=== PATIENT | female | born 1970 | race American Indian/Alaskan Native ===

== ENCOUNTER 2017-04-27 10:45 | Outpatient (CLI) | payer OTHER ==
--- NOTE | 2017-04-27 12:03 | Mammography Report ---
Bilateral mammogram: Compared to 03/04/14. CAD study utilized. Findings: Predominance adipose tissue bilaterally. Well-circumscribed density upper left breast approximate 12:00 position. No microcalcification. Benign axillary nodes. Impression: New circumscribed density 12:00 position left breast. Recommend spot mag and sonographic examination. BI-RADS CATEGORY: 0 = Needs additional imaging evaluation ACR BI-RADS MAMMOGRAPHIC CODES: 0 = Needs additional imaging evaluation; 1 = Negative; 2 = Benign; 3 = Probably benign; 4 = Suspicious; 5 = Malignant; 6 = Known biopsy-proven malignancy COMMENT: 1. Dense breast tissue, i.e., adenosis, fibrocystic changes, etc., may obscure an underlying neoplasm. 2. Approximately 10% of cancers are not detected with mammography. 3. A negative mammography report should not delay biopsy if a clinically suspicious mass is present. COMMENT: Patient follow-up letters are generated in [email or web address].
== END 2017-04-27 10:46 | disposition home or self-care (01) ==
LOC: SPVWC 10:45
DX: Z12.31 Encounter for screening mammogram for malignant neoplasm of breast (principal)
CPT/HCPCS: 77067; G0202

== ENCOUNTER 2018-11-08 06:19 | Inpatient (IN) | payer OTHER ==
[2018-11-08] MEDS ORDERED: ASPIRIN PO ONE (06:26)
[2018-11-08 06:54] LABS: Basophils % (Auto) 0.3 % (0.0-1.8); Eosinophils # (Auto) 0.1 K/mm3 (0.0-0.4); Eosinophils % (Auto) 2.2 % (0.0-4.3); Hematocrit 34.7 % (30.3-42.9); Hemoglobin 11.3 gm/dl (10.1-14.3); Lymphocytes # (Auto) 2.9 K/mm3 (1.2-5.4); Lymphocytes % (Auto) 42.6 % (13.4-35.0); Mean Corpuscular HGB Conc 33 % (30-34); Mean Corpuscular Volume 80 fl (79-97); Monocytes # (Auto) 0.7 K/mm3 (0.0-0.8); Monocytes % (Auto) 9.6 % (0.0-7.3); Platelet Count 249 K/mm3 (140-440); Red Blood Count 4.31 M/mm3 (3.65-5.03); Red Cell Distribution Width 16.1 % (13.2-15.2)
[2018-11-08 07:11] LABS: BUN/Creatinine Ratio 15; Blood Urea Nitrogen 9 mg/dL (7-17); Calcium 9.3 mg/dL (8.4-10.2); Hemolysis Index 6
--- NOTE | 2018-11-08 09:05 | Emergency Department Report ---
ED Chest Pain HPI - General Chief Complaint: Chest Pain Stated Complaint: CHEST PAIN Time Seen by Provider: 11/08/18 09:00 Source: patient Mode of arrival: Ambulatory Limitations: No Limitations - History of Present Illness Initial Comments: Patient is a 47-year-old female presents emergency room for complaints of chest pain. Patient states the chest pain is in her left chest and radiating to her left arm. Patient states the pain is a 5 out of 10. Patient states the pain has been consistent. Patient states the pain is better with rest and worse with exertion. Patient states she has type 2 diabetes and is on insulin pump. Patient states her last A1c was 7.9. Patient does not take aspirin everyday. Patient also has hypertension which she is taking lisinopril. Patient states she has been dizzy lately patient denies even chills. Patient denies shortness of breath per patient denies abdominal pain.. MD Complaint: chest pain -: Sudden Onset: during rest Pain Location: substernal, left chest Pain Radiation: LUE Severity: moderate Severity scale (0 -10): 5 Quality: tightness Consistency: constant Improves With: rest Worsens With: exertion re: denies: nausea, vomting, diaphoresis, dyspnea, sense of impending doom Other Symptoms: denies: cough, fever, syncope, rash, acid taste in mouth, leg swelling, palpitations, burping Treatments Prior to Arrival: none Aspirin use within the Past 7 Days: (0) No - Related Data On Oral Contraceptives: No Home Medications Medication Instructions Recorded Confirmed Last Taken Insulin Lispro [HumaLOG VIAL] 90 units SUB-Q CONT 11/08/18 11/08/18 11/07/18 Lisinopril [Zestril] 10 mg PO DAILY 11/08/18 11/08/18 Unknown Allergies Allergy/AdvReac Type Severity Reaction Status Date / Time oxycodone [From Percocet] Allergy Unknown Verified 11/08/18 06:25 Heart Score - HEART Score History: Moderately suspicious EKG: Non-specific Age: 45-65 Risk factors: 1-2 risk factors Troponin: < normal limit HEART Score: 4 ED Review of Systems ROS: Stated complaint: CHEST PAIN Other details as noted in HPI Constitutional: denies: chills, fever Eyes: denies: eye pain, eye discharge, vision change ENT: denies: ear pain, throat pain Respiratory: denies: cough, shortness of breath, wheezing Cardiovascular: chest pain. denies: palpitations Endocrine: no symptoms reported Gastrointestinal: denies: abdominal pain, nausea, diarrhea Genitourinary: denies: urgency, dysuria, discharge Musculoskeletal: denies: back pain, joint swelling, arthralgia Skin: denies: rash, lesions Neurological: denies: headache, weakness, paresthesias Psychiatric: denies: anxiety, depression Hematological/Lymphatic: denies: easy bleeding, easy bruising ED Past Medical Hx - Past Medical History Previous Medical History?: Yes Hx Hypertension: Yes Hx Diabetes: Yes - Surgical History Past Surgical History?: Yes Additional Surgical History: hyster. carpal tunnel right. cyst removed from right hand - Family History Family history: no significant - Social History Smoking Status: Never Smoker Substance Use Type: None - Medications Home Medications: Home Medications Medication Instructions Recorded Confirmed Last Taken Type Insulin Lispro [HumaLOG VIAL] 90 units SUB-Q CONT 11/08/18 11/08/18 11/07/18 History Lisinopril [Zestril] 10 mg PO DAILY 11/08/18 11/08/18 Unknown History ED Physical Exam - General Limitations: No Limitations General appearance: alert, in no apparent distress - Head Head exam: Present: atraumatic, normocephalic - Eye Eye exam: Present: normal appearance, PERRL Pupils: Present: normal accommodation - ENT ENT exam: Present: mucous membranes moist - Neck Neck exam: Present: normal inspection - Respiratory Respiratory exam: Present: normal lung sounds bilaterally. Absent: respiratory distress - Cardiovascular Cardiovascular Exam: Present: regular rate, normal rhythm. Absent: systolic mur mur, diastolic murmur, rubs, gallop - GI/Abdominal GI/Abdominal exam: Present: soft, normal bowel sounds - Extremities Exam Extremities exam: Present: normal inspection - Back Exam Back exam: Present: normal inspection - Neurological Exam Neurological exam: Present: alert, oriented X3 - Psychiatric Psychiatric exam: Present: normal affect, normal mood - Skin Skin exam: Present: warm, dry, intact, normal color. Absent: rash ED Course Vital Signs 11/08/18 11/08/18 11/08/18 06:25 10:05 10:06 Temperature 98.4 F Pulse Rate 84 69 69 Respiratory 16 20 23 Rate Blood Pressure 149/73 Blood Pressure 177/78 [Left] O2 Sat by Pulse 99 Oximetry 11/08/18 11/08/18 10:07 10:11 Temperature Pulse Rate 69 69 Respiratory 16 12 Rate Blood Pressure 149/73 149/73 Blood Pressure [Left] O2 Sat by Pulse Oximetry - Reevaluation(s) Reevaluation #1: Initial evaluation done. Discussed all results with patient. Patient will be admitted to the hospitalist service. Patient agrees with plan of care. 11/08/18 09:00 - Consultations Consultation #1: Hospitalist consulted for admission. Hospitalist to admit patient and assume care of patient. Bridge orders placed 11/08/18 09:06 MARGARETH score - Margareth Score Age > 65: (0) No Aspirin use within the Past 7 Days: (0) No 3 or more CAD Risk Factors: (0) No 2 or more Angina events in past 24 hrs: (1) Yes Known CAD with more than 50% Stenosis: (0) No Elevated Cardiac Markers: (0) No ST Deviation Greater than 0.5mm: (0) No MARGARETH Score: 1 ED Medical Decision Making - Lab Data Result diagrams: 11/08/18 06:40 11/08/18 06:40 - EKG Data -: EKG Interpreted by Me EKG shows normal: sinus rhythm, intervals, QRS complexes, ST-T waves - EKG Data Interpretation: other (axis deviation noted) - Radiology Data Radiology results: report reviewed, image reviewed interpreted by me: Normal limits chest x-ray AP CHEST: HISTORY: chest pain AP view of the chest demonstrates a normal mediastinal and cardiac contour with clear lungs and normal bony and soft tissue structures. IMPRESSION: - Medical Decision Making Patient is a 47-year-old female with episodes or general complaints of chest pain. Patient has cardiac risk factors. Patient was admitted to the hospitalist service for further patient treatment. Patient's initial cardiac workup was negative. EKG is negative for STEMI. Patient's chest x-ray is negative for acute findings - Differential Diagnosis chest pain. ACS. Critical care attestation.: If time is entered above; I have spent that time in minutes in the direct care of this critically ill patient, excluding procedure time. 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
--- NOTE | 2018-11-08 09:41 | XRay Report ---
AP CHEST: HISTORY: chest pain AP view of the chest demonstrates a normal mediastinal and cardiac contour with clear lungs and normal bony and soft tissue structures. IMPRESSION: Unremarkable AP chest.
--- NOTE | 2018-11-08 12:47 | History and Physical Report ---
History of Present Illness Date of examination: 11/08/18 Date of admission: 11/08/18 09:41 Chief complaint: Chest pain History of present illness: patient is 47 yo with hypertension, diabetes on Insulin pump, GERD, obesity. She presents with chest pain. Chest pain is left sided, 5 out of 10, like a pressure, radiates to shoulder to left arm. No known aggravating factor. Not worse on exertion. Not related to meals. Chest pain has been on and off for 1 week. Pain occured while at work today therefore came to hospital for evaluation. She was evaluated in ED. Initial Troponin normal. Will admit. Past History Past Medical History: diabetes Social history: single, full code. denies: smoking, alcohol abuse Family history: no significant family history, other (asthma) Medications and Allergies Allergies Allergy/AdvReac Type Severity Reaction Status Date / Time oxycodone [From Percocet] Allergy Unknown Verified 11/08/18 06:25 Home Medications Medication Instructions Recorded Confirmed Last Taken Type Insulin Lispro [HumaLOG VIAL] 90 units SUB-Q CONT 11/08/18 11/08/18 11/07/18 History Lisinopril [Zestril] 10 mg PO DAILY 11/08/18 11/08/18 Unknown History Exam - Constitutional Vitals: Temp Pulse Resp BP Pulse Ox 98.3 F 69 20 171/84 100 11/08/18 10:52 11/08/18 10:52 11/08/18 10:52 11/08/18 10:52 11/08/18 10:52 Results - Labs CBC & Chem 7: 11/08/18 06:40 11/08/18 06:40 Labs: Abnormal lab results 11/08/18 11/08/18 Range/Units 06:40 06:40 MCH 26 L (28-32) pg RDW 16.1 H (13.2-15.2) % Lymph % (Auto) 42.6 H (13.4-35.0) % Slope % (Auto) 9.6 H (0.0-7.3) % Creatinine 0.6 L (0.7-1.2) mg/dL Glucose 153 H (65-100) mg/dL Assessment and Plan Chest pain. Admit to Telemetry to rule out acute coronary syndrome. Aspirin now and daily Troponins neg Stress test in am Diabetes mellitus type 2. Use Insulin pump from home Hypertension resume Lisinopril Obesity. Counsled on diet and exercise Full code status.
[2018-11-08] MEDS ORDERED: ASPIRIN PO STA (14:07)
[2018-11-08] MEDS ORDERED: ZOFRAN IV PRN (14:36)
[2018-11-08] MEDS ORDERED: SODIUM CHLORIDE FLUSH SYRINGE 10 ML IV PRN ×2 (14:36→15:19)
[2018-11-08] MEDS ORDERED: MORPHINE IV PRN (14:36)
[2018-11-08] MEDS ORDERED: TYLENOL PO PRN (14:36)
[2018-11-08] MEDS ORDERED: NITROSTAT SL PRN (15:19)
[2018-11-08] MEDS ORDERED: PEPCID PO SCH (16:00)
[2018-11-08] MEDS: PROTONIX IV SCH (16:21)
[2018-11-08] MEDS: SODIUM CHLORIDE FLUSH SYRINGE 10 ML IV SCH (21:58)
[2018-11-08] MEDS: ZESTRIL PO SCH (21:58)
[2018-11-09] MEDS ORDERED: LEXISCAN IV ONE ×2 (10:34→11:00)
[2018-11-09 11:43] VITALS: BP 151/79
[2018-11-09] MEDS: ZESTRIL PO SCH (11:51)
[2018-11-09] MEDS: PROTONIX IV SCH (11:52)
[2018-11-09] MEDS: SODIUM CHLORIDE FLUSH SYRINGE 10 ML IV SCH (11:53)
--- NOTE | 2018-11-09 15:20 | Discharge Summary ---
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 She presented with left sided chest pain,. Chest pain has been on and off for 1 week. Pain occurred while at work today therefore came to hospital for evaluation. She was evaluated in ED. Initial Troponin normal. She was given Aspirin and admited to rule out acute coronary syndrome. Stress test was done the following day was normal so she was discharged home. pain due to GERD. she was discharged home on Pepcid. Disposition: TO HOME OR SELFCARE - Discharge Diagnoses (1) Diabetes mellitus type 2 in obese Status: Acute (2) GERD (gastroesophageal reflux disease) Status: Acute (3) Chest pain Status: Acute Qualifiers: Chest pain type: unspecified Qualified Code(s): R07.9 - Chest pain, unspecified Core Measure Documentation - Palliative Care Palliative Care/ Comfort Measures: Not Applicable - Core Measures Any of the following diagnoses?: none Exam - Constitutional Vitals: Temp Pulse Resp BP Pulse Ox 98.7 F 83 18 151/79 98 11/09/18 11:40 11/09/18 05:45 11/09/18 11:40 11/09/18 11:51 11/09/18 05:45 Plan Activity: no restrictions Diet: low fat, low cholesterol, low salt, diabetic Additional Instructions: 1.Follow up with PCP or [facility] in 1 week. Follow up with: [facility] [Provider Group] - 7 Days PRIMARY CARE, [Primary Care Provider] - 7 Days Prescriptions: Famotidine [Pepcid] 20 mg PO BID #60 tablet
--- NOTE | 2018-11-09 19:13 | Treadmill Report ---
THALLIUM STRESS TEST LEFT VENTRICLE: Left ventricular chamber size is within normal spread. Perfusion study demonstrates a small fixed apical defect, no significant reversibility on the resting study. Gated analysis demonstrates normal left ventricular systolic function, ejection fraction 64%. CONCLUSION: Small apical defect due to normal apical thinning, cannot exclude breast attenuation artifact. There is no reversible ischemia demonstrated on this study. Negative study. Clinical correlation is recommended. JOB# [id number] CA/NTS
== END 2018-11-09 17:41 | disposition home or self-care (01) | DRG 392 ==
LOC: ED 06:19 → 4A 09:41
PROVIDERS: ADMIT Internal Medicine; ATTEND Internal Medicine
DX: K21.9 Gastro-esophageal reflux disease without esophagitis (principal); R07.9 Chest pain, unspecified; I10 Essential (primary) hypertension; E11.9 Type 2 diabetes mellitus without complications; E66.9 Obesity, unspecified; Z68.39 Body mass index [BMI] 39.0-39.9, adult; Z90.710 Acquired absence of both cervix and uterus; Z79.4 Long term (current) use of insulin; Z82.5 Family history of asthma and other chronic lower respiratory diseases; Z71.3 Dietary counseling and surveillance
CPT/HCPCS: 36415; 71045; 78452; 80048; 82962; 84484; 85025; 93005; 93010; 93017; G0378; A9502; C9113; J2785